=== PATIENT | female | born 1970 | race Caucasian/White ===

== ENCOUNTER 2017-12-14 07:19 | Day surgery (SDC) | payer BC ==
[2017-12-13 15:35] VITALS: BMI 22.4
[2017-12-14 09:12] LABS: BHCG - Serum Negative (NEGATIVE); Pregs Control Bar Appear? YES (CONTROL BAR)
[2017-12-14 09:13] LABS: Pregs Control Background? CLEAR/WHITE (CLR/WHITE)
[2017-12-14] MEDS ORDERED: Midazolam HCl 2 mg/2 ml Vial ONE ×2 (09:35→10:30)
[2017-12-14] MEDS ORDERED: LIDOCAINE HCL 4% Topical Sol (4 ML SOLN.PK.G.) FS SCH (10:00)
[2017-12-14] MEDS ORDERED: Hydrocodone-Acetamin 15 ML UDCUP ONE (10:09)
[2017-12-14] MEDS ORDERED: Lidocaine 1% PF 5 ML VIAL ONE (10:10)
[2017-12-14] MEDS ORDERED: Lidocaine 4% Topical Sol 50 ML BOT ONE (10:30)
[2017-12-14] MEDS ORDERED: Propofol 500 MG/50 ML VIAL ONE (10:30)
[2017-12-14] MEDS ORDERED: Fentanyl 100 MCG/2 ML VIAL ONE ×2 (10:30→12:49)
[2017-12-14] MEDS ORDERED: Triamcinolone 40 MG/ML VIAL ONE (12:12)
[2017-12-14] MEDS ORDERED: Succinylcholine Chloride 20 MG/ML 10 ml SYRINGE FS ONE (12:21)
--- NOTE | 2017-12-14 13:34 | OP ---
DATE OF PROCEDURE: 12/14/2017 PREOPERATIVE DIAGNOSES: Subglottic stenosis, shortness of breath. POSTOPERATIVE DIAGNOSES: Subglottic stenosis, shortness of breath. PROCEDURE PERFORMED: 1. Microsuspension laryngoscopy with rigid bronchoscopy. 2. Tracheal biopsy. 3. Direct bronchoscopy with subglottic steroid injection and finally tracheoscopy with balloon trach eal dilation from 8 to 15 mm. PROCEDURE IN DETAIL: After consent was obtained, the patient was identified and brought to the opera tin room and placed on the operating table in supine position. General endotracheal anesthesia was obtained with the Nahun jet ventilating tube. We then positioned the patient suspension lar yngoscopy. Through the laryngoscope, we passed a 0-degree telescope down to the bronchus and through the subglottic space, which was narrowed. There did appear to be some deformity to the trachea at t he site of the previous laminectomy. However, no obvious obstruction, no foreign bodies and no mucos al inflammation or blood. We went ahead and then injected the subglottic area in a circumferential f ashion with Kenalog 40 mg per mL injection. An undetermined amount actually got into the subglottic mucosa. A biopsy was then obtained and sent for histologic evaluation as well as culture. At the co mpletion of the procedure, the Nahun jet ventilating tube was removed and an esophageal balloon di lator measuring from 8 to 15 mm was placed within the subglottic space through the vocal cords. It w as then inflated all the way up to 15 mm where it remained inflated for 60 seconds. It was then diane tasia and an endotracheal tube was placed that allowed the patient to wake up slowly and safely. The p solange was then awakened, extubated and taken to recovery room where she remained in stable condition prior to discharge home.
== END 2017-12-14 14:45 | disposition home or self-care (01) ==
LOC: SDC 07:19
PROVIDERS: ATTEND Specialist
DX: J38.6 Stenosis of larynx (principal); J38.7 Other diseases of larynx; B95.4 Other streptococcus as the cause of diseases classified elsewhere; E11.9 Type 2 diabetes mellitus without complications; J32.9 Chronic sinusitis, unspecified; Z88.8 Allergy status to other drugs, medicaments and biological substances; Z79.2 Long term (current) use of antibiotics; Z79.4 Long term (current) use of insulin; Z79.899 Other long term (current) drug therapy; Z98.890 Other specified postprocedural states
CPT/HCPCS: 36415; 36416; 84703; 85014; 87070; 87205; 88305; 88312; 88341; 88342; 96374; J2001; J2250; J2704; J3010; J3301